=== PATIENT | female | born 1945 | race Caucasian/White ===

== ENCOUNTER 2019-08-15 02:13 | Emergency (ER) | payer MEDICARE, OTHER ==
[2019-08-15] MEDS ORDERED: Acetaminophen 500 MG TAB ONE (02:33)
--- NOTE | 2019-08-15 08:00 | CT ---
PRELIMINARY REPORT/[facility]/EMERGENCY AFTER HOURS PROCEDURE CT BRAIN WO CON History: Patient presents from home after a fall. She says she accidentally took 2 albuterol treatmen ts close together. This inevitably makes her jittery and prone to falling. When she fell she hit the right side of her head but denies LOC Comparison: None Findings: Periventricular and subcortical white matter hypodensities are nonspecific, most likely on the basis of chronic small vessel ischemia. Banks-white interface preserved throughout. No evidence of sulcal effacement. No intracranial hemorrha ge, mass effect or midline shift. No hydrocephalus or extra-axial fluid collection. Calvarium intact. No focal scalp hematoma identifie d. Vascular calcifications are present. There is under pneumatization of the mastoid air cells. No fluid opacification identified. Trace muc osal thickening of the paranasal sinuses without air-fluid levels. Orbits are unremarkable. Impression: 1. No acute intracranial abnormality identified. 2. Senescent and chronic intracranial findings. 3. Trace paranasal sinus mucosal changes without air-fluid levels. ELECTRONICALLY SIGNED BY: Roger Moreira DO August 15, 2019 3:24:01 AM CDT FINAL REPORT CT BRAIN WITHOUT CONTRAST: I agree with the preliminary report given by Dr. Roger Delacruz of [facility]. POS: ANISH
== END 2019-08-15 04:17 | disposition home or self-care (01) ==
LOC: ERS 02:13
DX: S09.90XA Unspecified injury of head, initial encounter (principal); S30.810A Abrasion of lower back and pelvis, initial encounter; M54.5 Low back pain; G89.29 Other chronic pain; M1A.9XX0 Chronic gout, unspecified, without tophus (tophi); E11.40 Type 2 diabetes mellitus with diabetic neuropathy, unspecified; E78.00 Pure hypercholesterolemia, unspecified; I10 Essential (primary) hypertension; Z87.891 Personal history of nicotine dependence; W06.XXXA Fall from bed, initial encounter
CPT/HCPCS: 70450